=== PATIENT | male | born 1955 | race Caucasian/White ===

== ENCOUNTER 2021-08-30 14:33 | Inpatient (IN) | payer MEDICAID ==
[~2021-08-30] VITALS: Ht 172.7 cm; Wt 77.1 kg
[~2021-08-30 14:33] MED LIST: KEFLEX750 MG PO
[2021-08-30 15:26] LABS: HEMOGLOBIN 15.1 gm/dl (14.0-17.5); RED BLOOD COUNT 5.27 M/UL (4.20-5.50); WHITE BLOOD COUNT 4.4 K/UL (4.5-11.0)
[2021-08-30 15:55] LABS: BUN/CREATININE RATIO 18 (0-10)
[2021-08-31 05:54] LABS: HEMOGLOBIN 13.3 gm/dl (14.0-17.5); WHITE BLOOD COUNT 5.4 K/UL (4.5-11.0)
[2021-08-31 06:12] LABS: RED BLOOD COUNT 4.62 M/UL (4.20-5.50)
[2021-08-31 07:12] LABS: BUN/CREATININE RATIO 18 (0-10)
[2021-09-01 03:09] LABS: HEMOGLOBIN 13.9 gm/dl (14.0-17.5); RED BLOOD COUNT 4.8 M/UL (4.20-5.50); WHITE BLOOD COUNT 4.3 K/UL (4.5-11.0)
[2021-09-01 03:31] LABS: BUN/CREATININE RATIO 21 (0-10)
[2021-09-02 02:07] LABS: HEMOGLOBIN 13.9 gm/dl (14.0-17.5); RED BLOOD COUNT 4.9 M/UL (4.20-5.50)
[2021-09-02 02:09] LABS: WHITE BLOOD COUNT 8.6 K/UL (4.5-11.0)
[2021-09-02 02:37] LABS: BUN/CREATININE RATIO 24 (0-10)
[2021-09-03 06:35] LABS: HEMOGLOBIN 14.1 gm/dl (14.0-17.5); RED BLOOD COUNT 4.92 M/UL (4.20-5.50)
[2021-09-03 06:36] LABS: WHITE BLOOD COUNT 11.8 K/UL (4.5-11.0)
[2021-09-03 07:40] LABS: BUN/CREATININE RATIO 19 (0-10)
--- NOTE | 2021-09-03 09:11 | NUR ---
PT DROPS TO 88 ON RA WALKING.
[2021-09-03] MEDS ORDERED: HUMALOG 10100 UNITS/ SC ×2 (11:03→11:10)
[2021-09-03] MEDS ORDERED: LANTUS INS100 UTS/M1 SQ (11:03)
[2021-09-03] MEDS ORDERED: ELIQUIS 2.5 MG2.5 MG PO (11:03)
[2021-09-03] MEDS ORDERED: ZOFRAN4 MG PO (11:03)
[2021-09-03] MEDS ORDERED: ASPIRIN EC81 MG PO (11:03)
[2021-09-03] MEDS ORDERED: IPRAT-ALBUT 0.5-3 ML NEB (11:03)
[2021-09-03] MEDS ORDERED: DEX4 GLUCOSE4 GM PO (11:10)
[2021-09-03] MEDS ORDERED: PROTONIX40 MG PO (11:10)
[2021-09-03] MEDS ORDERED: POTASSIUM CHLO20 ME1 PO (11:10)
[2021-09-03] MEDS ORDERED: OMNICEF 300 MG300 MG PO (11:10)
[2021-09-03] MEDS ORDERED: DECADRON6 MG PO (11:10)
[2021-09-03] MEDS ORDERED: HYDRALAZINE HCL25 MG PO (12:14)
[2021-09-03] MEDS ORDERED: AMLODIPINE BESY10 MG PO (12:14)
[2021-09-03] MEDS ORDERED: GLUCOPHAGE 500500 MG PO (12:22)
[2021-09-03] MEDS ORDERED: ACCU-CHEK1 EACH MC (12:22)
[2021-09-03] MEDS ORDERED: ZESTRIL2.5 MG PO (12:22)
[2021-09-03] MEDS ORDERED: INSULIN PEN NE1 EAC1 MC (12:22)
[2021-09-03] MEDS ORDERED: NOVOLIN N100 UNIT/1 SQ (12:54)
[2021-09-03] MEDS ORDERED: PROVENTIL HFA6.7 GM INH (13:28)
--- NOTE | 2021-09-03 21:16 | NUR ---
DR. ANGELO NOTIFIED OF PATIENT BLOOD PRESSURE OF 220/101. PATIENT ON THE PHONE ARGUING WITH FAMILY ABOUT WHO WILL PICK HIM UP. DR ANGELO ORDERED MEDICATIONS SEE CHART. [facility] FINALLY ARRIVES AND I NOTIFY PATIENT. PATIENT CONTINUES TO ARGUE WITH FAMILY ON PHONE. DR ANGELO COMES TO NURSES STATION AND STATES THAT IF SYSTOLIC BP LESS THAN 160 MAY DISCHARGE PATIENT. SEE CHART FOR VITALS. PATIENT DISHCARGE PER MD ORDERS. IV REMOVED PATIENT TOLERATE. PATIENT TAKEN TO FAMILY CAR VIA WHEELCHAIR WITH HOME O2 TANK IN TOW.
== END 2021-09-03 20:51 | disposition home or self-care (01) | DRG 177 ==
LOC: ER1 14:33 → CDU 23:30 → MED SURG 4 08-31 15:44
PROVIDERS: Internal Medicine; Preventive Medicine Occupational Medicine; ADMIT Internal Medicine
PROC: XW033E5 Introduction of Remdesivir Anti-infective into Peripheral Vein, Percutaneous Approach, New Technology Group 5 (ICD-10-PCS; principal; 2021-08-30)
PROC: 3E0333Z Introduction of Anti-inflammatory into Peripheral Vein, Percutaneous Approach (ICD-10-PCS; 2021-08-30)
PROC: 8E0ZXY6 Isolation (ICD-10-PCS; 2021-08-31)
DX: U07.1 COVID-19 (principal); J12.82 Pneumonia due to coronavirus disease 2019; J96.01 Acute respiratory failure with hypoxia; J15.9 Unspecified bacterial pneumonia; A08.39 Other viral enteritis; E66.01 Morbid (severe) obesity due to excess calories; E11.9 Type 2 diabetes mellitus without complications; D69.6 Thrombocytopenia, unspecified; E87.6 Hypokalemia; I72.2 Aneurysm of renal artery; K57.30 Diverticulosis of large intestine without perforation or abscess without bleeding; Z79.84 Long term (current) use of oral hypoglycemic drugs; Z79.01 Long term (current) use of anticoagulants; Z83.3 Family history of diabetes mellitus; Z79.82 Long term (current) use of aspirin; Z98.890 Other specified postprocedural states; Z68.29 Body mass index [BMI] 29.0-29.9, adult
CPT/HCPCS: 36415; 36600; 71045; 80053; 80307; 82550; 82553; 82728; 82803; 82962; 83036; 83615; 83690; 83874; 84132; 84484; 85025; 85027; 85379; 85652; 86140; 93005; 94640; 94664; 94760; 96374; 96375; 99285; C9113; G0480; J0360; J0696; J1100; J1650; J2405; J7030; Q9967; U0002